=== PATIENT | male | born 1970 | race Caucasian/White ===

== ENCOUNTER 2017-12-29 07:38 | Inpatient (IN) | payer OTHER ==
--- NOTE | 2017-12-03 11:39 | HP ---
DATE OF ADMISSION: 12/29/2017 DATE OF DICTATION: 11/09/2017 Patient to be admitted to the [facility] in the near future for surgery, date to be determined. HISTORY: This is a 47-year-old man admitted to [facility] for abdominal wall hernia surgery. The patient had been lifting a computer cart at work in June of this past year and had developed pain in and around the umbilicus. He subsequently noticed that he had a bulge associated with intermittent discomfort. He had come to see me for my evaluation in July, where I noted that he had had a ventral hernia. Patient had declined an operative intervention at that time. However, the defect has become enlarged in size, associated with more discomfort. He presents now for abdominal wall hernia repair with mesh. No underlying GI, , or respiratory complaints to suggest predisposition to hernia formation. PAST MEDICAL HISTORY: Essentially nil. No history of hypertension, heart disease, diabetes, respiratory, renal, or hepatic insufficiency. PAST SURGICAL HISTORY: Nil. ALLERGIES: None known. REGULAR MEDICATIONS: None. SOCIAL HISTORY: Negative for tobacco. Social alcohol. FAMILY HISTORY: Unavailable. REVIEW OF SYSTEMS: Nil. PHYSICAL EXAMINATION: Abdomen: Soft and nontender. Obvious incarcerated ventral hernia stemming from the central ring of the abdomen, extending up into the upper midline. It is associated with a [id number] diastasis recti stemming from the xiphoid process to the umbilicus itself. IMPRESSION: Chronically incarcerated and progressively enlarging ventral hernia. PLAN: Reduction and repair of ventral hernia with mesh with or without component separation. Indications, alternatives, possible complications reviewed. Consent obtained. Patient will be seen preoperatively by his PMD. Please refer to those notes for those medical details. MACARENA FRANCIS M.D. [id number]
[~2017-12-29 07:38] MED LIST: BUPIVACAINE HCL/PF 0.25% (2.5MG/ML) 10 ML VIAL IJ ONE; DEXAMETHASONE SOD PHOSPHATE 4 MG/1 ML VIAL IM ONE
[2017-12-29] MEDS ORDERED: TAMSULOSIN HCL 0.4 MG CAP.ER.24H (FP) ONE (07:53)
[2017-12-29] MEDS ORDERED: ceFAZolin SODIUM 1 GM VIAL ONE (07:54)
[2017-12-29 08:06] VITALS: BMI 29.3
[2017-12-29] MEDS ORDERED: MIDAZOLAM HCL 2 MG/2 ML SINGLE DOSE VIAL ONE (09:56)
[2017-12-29] MEDS ORDERED: ceFAZolin SODIUM 1 GM VIAL IVPB ONE (10:10)
[2017-12-29] MEDS ORDERED: BUPIVACAINE HCL/PF 0.25% (2.5MG/ML) 10 ML VIAL ONE (10:26)
[2017-12-29] MEDS ORDERED: DEXAMETHASONE SOD PHOSPHATE 4 MG/1 ML VIAL ONE (10:26)
--- NOTE | 2017-12-29 10:34 | HP ---
DATE OF ADMISSION: 12/29/2017 HISTORY: This 47-year-old man was admitted to the hospital for reduction and repair of chronically incarcerated ventral hernia with mesh. No underlying GI, , or respiratory complaints to suggest redisposition of hernia formation. PAST MEDICAL HISTORY: No past medical history. No history of hypertension, diabetes, heart disease, respiratory, or hepatic insufficiency. PAST SURGICAL HISTORY: Nil. ALLERGIES: None known. REGULAR MEDICATIONS: None. SOCIAL HISTORY: Negative for tobacco. Social alcohol. Not quantified. FAMILY HISTORY: Nil. REVIEW OF SYSTEMS: Nil. PHYSICAL EXAMINATION: On examination, there is an obvious chronically incarcerated ventral hernia involving the central ring of the abdomen extending up into the upper midline. It is also associated with a large diastasis recti extending from the xiphoid process to the umbilicus itself. IMPRESSION: Chronically incarcerated progressively enlarging ventral hernia after entering initial presentation June of 2017. PLAN: Reduction of chronically incarcerated ventral hernia with mesh. Likely bilateral component separation. Indications, alternatives, possible complications were reviewed. Consent obtained. Please refer to preoperative medical evaluation for medical details in addition to those I provide and those provided above. MACARENA FRANCIS M.D. [id number]
[2017-12-29] MEDS ORDERED: NEOSTIGMINE METHYLSULFATE 0.5 MG/ML - 10 ML MDV ONE (11:02)
[2017-12-29] MEDS ORDERED: BUPIVACAINE HCL/PF 0.25% (2.5MG/ML) 10 ML VIAL IJ ONE (11:10)
[2017-12-29] MEDS ORDERED: DEXAMETHASONE SOD PHOSPHATE 4 MG/1 ML VIAL IM ONE (11:10)
--- NOTE | 2017-12-29 12:10 | OP ---
DATE OF OPERATION: 12/29/2017 PREOPERATIVE DIAGNOSIS: Incarcerated ventral hernia. POSTOPERATIVE DIAGNOSIS: Incarcerated ventral hernia. PROCEDURE: Bilateral component separation, repair, incarcerated ventral hernia , with mesh/rectus sheath block as per gallery assistant. OPERATING SURGEON: Macarena Giles M.D. PLASTIC TECHNICIAN: Dave Medniola M.D. ANESTHESIA: Shanta Mcgrath M.D. (general) HISTORY: This is a 47-year-old man who presents for a progressively enlarging complex chronically incarcerated ventral hernia. Indications, alternatives, possible complications are reviewed, including issues related to placement of the mesh. Consent obtained. PROCEDURE: With the patient in the supine position, general anesthesia given and abdomen prepped and draped in the usual sterile fashion using chlorhexidine. Midline incision was made directly over the palpable abnormality and deepened into the subcutaneous space. The hernia sac was easily encountered and cleaned to the level of the fascial ring. The hernia sac was opened and found to contain incarcerated omentum. Lysis of adhesions ensued and the omentum was reduced. First directing our attention to the right side, the posterior rectus sheath was from the overlying rectus muscle fibers, creating the retrorectus space. This dissection continued in the inferior, lateral and superior directions, ultimately arriving at the junction of the rectus with the oblique and transversus musculature. Separation of the oblique musculature from the transversus below then ensued. The retrorectus space was then further created in the plane between the oblique and transversus muscles, again moving in the inferior, lateral and superior direction. Now directing our attention to the left side, the posterior left rectus sheath was from the overlying left rectus muscle fibers using sharp dissection. Ultimately the junction of the rectus with the oblique and transversus musculature was encountered. Separation of the oblique musculature from the underlying transverse muscle ensued and the retrorectus space initially created was extended in the plane between the oblique and transverse musculature, moving in the inferior, lateral and superior direction. The posterior midline was then reapproximated using a continuous 3-0 Maxon suture. Ultimately a piece of ProTack mesh measuring 15 x 15 cm was selected for the repair. A composite mesh was made, suturing a piece of DIANDRA Bio to the undersurface of the ProGrip mesh. After the mesh was soaked in saline, it was placed in the retrorectus space with the DIANDRA Bio side down and the ProGrip side up. The mesh was then maneuvered and fashioned to lie flat in the retrorectus space. It was tacked circumferentially with an AbsorbaTacker and counterpalpation, fixing the mesh in all 4 quadrants. After adequate hemostasis and irrigation, the midline fascia was then closed using a continuous No. 1 PDS suture, beginning at each end of the wound with the suture tied at the wound midpoint. The subcutaneous space was then irrigated. Adequate hemostasis ensured. Metallic clips were used to approximate the skin edges and the procedure was terminated. Needle, sponge, instrument count correct. Estimated blood loss minimal. Specimen none. Drains none. Implant: ProGrip/DIANDRA Bio mesh. Patient tolerated the procedure and the procedure was terminated. MACARENA GILES M.D. [id number] MTDD
[2017-12-29] MEDS: ACETAMINOPHEN 1000 MG/100 ML VIAL (NON FORMULARY) IVPB ONE ×2 (12:20→15:21)
[2017-12-29] MEDS ORDERED: ACETAMINOPHEN INJECTION 100 ML IVPB ONE (12:24)
[2017-12-29] MEDS ORDERED: ONDANSETRON 4 MG/2 ML VIAL IVPUSH PRN ×2 (12:52→13:31)
[2017-12-29] MEDS ORDERED: PROMETHAZINE HCL 25 MG/1 ML VIAL IVPUSH PRN (12:52)
[2017-12-29] MEDS ORDERED: oxyCODONE HCL 5 MG TABLET PO PRN ×2 (12:52→13:31)
[2017-12-29] MEDS ORDERED: LACTATED RINGERS SOLUTION 1,000 ML IV SCH (13:00)
[2017-12-29] MEDS ORDERED: morphine SULFATE 4 MG/ML VIAL IVPB PRN (13:31)
[2017-12-29] MEDS ORDERED: IBUPROFEN 800 MG/8 ML IJ IVPB SCH (13:45)
[2017-12-29] MEDS ORDERED: D5-1/2NS+20 MEQ KCL - 20 MEQ/1,000 ML INFUS.BAG IV SCH (13:45)
[2017-12-29] MEDS: IBUPROFEN 800 MG/8 ML IJ IVPB SCH ×2 (15:40→20:54)
[2017-12-30] MEDS: IBUPROFEN 800 MG/8 ML IJ IVPB SCH ×2 (02:11→10:54)
[2017-12-30 06:56] VITALS: TEMP 98.2
[2017-12-30] MEDS ORDERED: PT OWN MED DRAWER 7, Y5N ONE (07:44)
[2017-12-30 09:34] VITALS: BP 109/65; PULSE 65
[2017-12-30] MEDS ORDERED: ENOXAPARIN NA (PORCINE) 40 MG/0.4 ML DISP.SYRIN SQ SCH (10:00)
[2017-12-30] MEDS ORDERED: PANTOPRAZOLE SODIUM 40 MG VIAL IVPUSH SCH (10:00)
--- NOTE | 2017-12-30 12:57 | DS ---
DATE OF ADMISSION: December 29, 2017 DATE OF DISCHARGE: December 30, 2017 ADMITTING DIAGNOSIS: Complex abdominal wall hernia. DISCHARGE DIAGNOSIS: Complex abdominal wall hernia. BRIEF HISTORY: This is a 47-year-old male who presented to [facility] for surgical management of a complex abdominal wall hernia. This was repaired utilizing component separation techniques and mesh. Please reference Dr. Torrey Figueredo operative report. That was done on December 29. He is discharged home today, December 30. He is tolerating diet and voiding. He will go home. He will not lift anything more than [address] He is okay to shower. He is okay for a regular diet. He will follow up with Dr. Giles in approximately 2 weeks time to be evaluated for staple removal. He has a new prescription for Percocet, which he will take as needed for pain. DO EVANGELINA ALONSO/[id number]
== END 2017-12-30 13:35 | disposition home or self-care (01) | DRG 227 ==
LOC: JASU-SURG 07:38 → JSAMEDAYSX 13:31 → J8W 14:55
PROVIDERS: ADMIT Surgery; ATTEND Surgery
PROC: 0WUF0JZ Supplement Abdominal Wall with Synthetic Substitute, Open Approach (ICD-10-PCS; principal; 2017-12-29 09:30)
DX: K43.6 Other and unspecified ventral hernia with obstruction, without gangrene (principal)
CPT/HCPCS: 94010; 94760; J0131